=== PATIENT | female | born 1940 | race Caucasian/White ===

== ENCOUNTER 2019-07-19 14:29 | Emergency (ER) | payer MEDICARE, OTHER ==
[~2019-07-19] VITALS: Ht 154.9 cm; Wt 61.2 kg
[~2019-07-19 14:29] MED LIST: JANUVIA100 MG PO; LEVOTHYROXINE PO; METFORMIN HCL850 MG PO; NITROFURANTOIN100 MG PO; PAXIL PO
--- OUTSIDE RECORDS SUMMARY | 2019-07-19 14:32 | XMS REPORT ---
Author Author [facility] Address Unknown Phone Unavailable Care Team Providers Care Reed Press Feeder Name Role Phone Unavailable Unavailable Payers Payer Name Policy Type Policy Number Effective Date Expiration Date Problems This patient has no known problems. Allergies, Adverse Reactions, Alerts This patient has no known allergies or adverse reactions. Medications This patient has no known medications.
[2019-07-19] MEDS ORDERED: KETOROLAC TROMETHAMINE 30 MG/ML VIAL IV STA (14:51)
[2019-07-19] MEDS ORDERED: SODIUM CHLORIDE 0.9% 500ML 500 ML IV ONE (15:00)
[2019-07-19] MEDS ORDERED: DIAZEPAM 5 MG TAB PO ONE (15:00)
--- NOTE | 2019-07-19 15:49 | Diagnostic Imaging Report ---
History: Cough Comparison: No comparison chest imaging Findings: The lungs are clear aside from areas of linear likely scar lateral to the extending laterally from the left heart border and in the periphery of the lower right lung overlying the right anterior fifth rib. No pleural effusions or pneumothorax. The heart shadow is normal in size. The thoracic aorta is mildly tortuous and calcified. Degenerative changes are present in the spine. Impression: No evidence of acute cardiopulmonary disease. Signed by: Abimael Waller MD on 07/19/2019 3:46 PM
--- NOTE | 2019-07-19 15:57 | Diagnostic Imaging Report ---
History: Right head and neck pain Comparison studies:CT head 08/28/2014 Technique: Axial images were obtained from the brain and cervical spine. Coronal and sagittal images reconstructed from the axial data. Intravenous contrast: None Dose modulation, iterative reconstruction, and/or weight based adjustment of the mA/kV was utilized to reduce the radiation dose to as low as reasonably achievable. Findings: Head CT: Scalp/skull: No abnormalities. No fractures, blastic or lytic lesions. Brain sulci: Mildly prominent. Ventricles: Age-appropriate. No hydrocephalus. Parenchyma: Few small hypodensities in the supratentorial white matter are small vessel ischemic changes. No masses, hemorrhage, acute or chronic cortical vascular insults. Sellar/suprasellar region: No abnormalities. Craniocervical junction: Patent foramen magnum. No Chiari one malformation. Incidental findings: Atherosclerotic calcifications of the carotid siphons and vertebral arteries. Cervical spine CT: Fractures: None. Soft tissues: No gross abnormalities. Atlantoaxial articulation: Degenerative changes without acute abnormality. Alignment: Minimal grade 1 anterolisthesis of C3 over C4 (2 mm). No scoliosis. Cervicomedullary junction: No abnormalities. Patent foramen magnum. Vertebrae: No infection or neoplasm. Degenerative changes: At C3-4, mild disc degeneration with decreased intervertebral space. Bilateral facet hypertrophy and left uncinate process hypertrophy results in mild right and moderate left foraminal narrowing without significant canal stenosis. At C4-5, disc degeneration with obliterated intervertebral space. Diffuse disc osteophyte complex, bilateral uncinate process hypertrophy and facet hypertrophy results in moderate canal stenosis and severe bilateral foraminal narrowing. At C5-6, disc degeneration with obliterated intervertebral space and endplate sclerosis. Diffuse disc osteophyte complex and bilateral uncinate process hypertrophy results in moderate canal stenosis and moderate bilateral foraminal narrowing. At C6-7, disc degeneration with decreased intervertebral space. Bilateral uncinate process hypertrophy results in mild bilateral foraminal narrowing without significant canal stenosis. . Incidental findings: Atherosclerotic calcifications of the carotid bulbs. . Impression: Head CT: 1. No acute abnormality. Cervical spine CT: 1. No acute abnormalities. Degenerative changes as described above. 2. Cannot exclude ligament, spinal cord and or vascular abnormalities on the basis of this examination. Signed by: DR Alvin Mobley M.D. on 07/19/2019 3:54 PM
[2019-07-19 17:00] LABS: BASOPHILS % 0.3 % (0.0-1.0); EOSINOPHILS # (AUTO) 0.1 (0.0-0.4); EOSINOPHILS % 0.6 % (0.0-6.0); HEMATOCRIT 37.3 % (34.2-44.1); HEMOGLOBIN 12.2 g/dL (12.0-16.0); LYMPHOCYTES # (AUTO) 1.2 (1.0-3.2); LYMPHOCYTES % 10.2 % (18.0-39.1); MEAN CORPUSCULAR HEMOGLOBIN 28.2 pg (28-32); MEAN CORPUSCULAR HGB CONC 32.7 g/dL (31-35); MEAN CORPUSCULAR VOLUME 86.3 fL (81-99); MONOCYTES % 8.5 % (4.4-11.3); NEUTROPHILS # (AUTO) 9.4 (2.1-6.9); NEUTROPHILS % 79.9 % (38.7-80.0); PLATELET COUNT 443 x10e3/uL (140-360); RED BLOOD COUNT 4.32 x10e6/uL (3.6-5.1); RED CELL DISTRIBUTION WIDTH 13.3 % (11.7-14.4)
[2019-07-19 17:07] LABS: INR 0.96; PROTHROMBIN TIME 13.3 seconds (11.9-14.5)
[2019-07-19 17:08] LABS: PARTIAL THROMBOPLASTIN TIME 27.7 seconds (23.8-35.5)
[2019-07-19 17:17] LABS: ALANINE AMINOTRANSFERASE 11 IU/L (0-55); ALBUMIN 3.5 g/dL (3.5-5.0); ALBUMIN/GLOBULIN RATIO 0.8 (0.8-2.0); ALKALINE PHOSPHATASE 57 IU/L (40-150); ANION GAP 16.7 mmol/L (8-16); BLOOD UREA NITROGEN 15 mg/dL (7-26); BUN/CREATININE RATIO 22 (6-25); CALCIUM 10.1 mg/dL (8.4-10.2); CARBON DIOXIDE 24 mmol/L (22-29); CHLORIDE 102 mmol/L (98-107); CREATININE, SERUM 0.69 mg/dL (0.57-1.11); EST GLOMERULAR FILTRATION RATE > 60 ML/MIN (60-); GLUCOSE 93 mg/dL (74-118); POTASSIUM 3.7 mmol/L (3.5-5.1); SODIUM 139 mmol/L (136-145)
== END 2019-07-19 18:29 | disposition home or self-care (01) ==
LOC: ER 14:29
DX: M43.6 Torticollis (principal); R05 Cough; E11.9 Type 2 diabetes mellitus without complications; E03.9 Hypothyroidism, unspecified; Z86.73 Personal history of transient ischemic attack (TIA), and cerebral infarction without residual deficits
CPT/HCPCS: 36415; 70450; 71046; 72125; 80053; 85025; 85610; 85730; 99284; J1885; J7040

== ENCOUNTER → 2019-09-22 | Day surgery (SDC) | payer MEDICARE, OTHER ==
[2019-09-17 11:38] LABS: BASOPHILS % 0.7 % (0.0-1.0); EOSINOPHILS # (AUTO) 0.2 (0.0-0.4); EOSINOPHILS % 2.7 % (0.0-6.0); HEMATOCRIT 25.8 % (34.2-44.1); HEMOGLOBIN 7.9 g/dL (12.0-16.0); LYMPHOCYTES # (AUTO) 1.3 (1.0-3.2); LYMPHOCYTES % 21.5 % (18.0-39.1); MEAN CORPUSCULAR HEMOGLOBIN 28.5 pg (28-32); MEAN CORPUSCULAR HGB CONC 30.6 g/dL (31-35); MEAN CORPUSCULAR VOLUME 93.1 fL (81-99); MONOCYTES # (AUTO) 0.7 (0.2-0.8); MONOCYTES % 11.2 % (4.4-11.3); NEUTROPHILS # (AUTO) 3.7 (2.1-6.9); NEUTROPHILS % 63.7 % (38.7-80.0); PLATELET COUNT 256 x10e3/uL (140-360); RED BLOOD COUNT 2.77 x10e6/uL (3.6-5.1); RED CELL DISTRIBUTION WIDTH 15.5 % (11.7-14.4)
[2019-09-17 11:53] LABS: INR 0.89; PROTHROMBIN TIME 12.6 seconds (11.9-14.5)
[2019-09-17 12:05] LABS: ALANINE AMINOTRANSFERASE 14 IU/L (0-55); ALBUMIN 3.4 g/dL (3.5-5.0); ALKALINE PHOSPHATASE 60 IU/L (40-150); ANION GAP 11.7 mmol/L (8-16); BLOOD UREA NITROGEN 11 mg/dL (7-26); BUN/CREATININE RATIO 17 (6-25); CALCIUM 9.7 mg/dL (8.4-10.2); CARBON DIOXIDE 28 mmol/L (22-29); CHLORIDE 106 mmol/L (98-107); CREATININE, SERUM 0.63 mg/dL (0.57-1.11); EST GLOMERULAR FILTRATION RATE > 60 ML/MIN (60-); GLUCOSE 91 mg/dL (74-118); POTASSIUM 4.7 mmol/L (3.5-5.1); SODIUM 141 mmol/L (136-145)
[2019-09-22] VITALS (9 sets, daily range): BP systolic 112–140; BP diastolic 64–77
[~2019-09-22] VITALS: Ht 154.9 cm; Wt 61.2 kg
[~2019-09-22] MED LIST changes: +ASPIRIN 325 MG TAB ONE; +ASPIRIN325 MG PO; +CLOPIDOGREL BISULFATE 75 MG TAB ONE; +CRANBERRY-PROB1 EACH PO; +CRESTOR10 MG PO; +DOXYCYCLINE HY100 MG PO; +FENTANYL CITRATE/PF 100MCG/2 ML INJ ONE; +HEPARIN SOD (PORCINE) 1000 UNIT/ML 30ML ONE; +HEPARIN SOD/SOD CHLORIDE 2,000 ML ONE; +IOPAMIDOL 300MG/ML 100 ML INFUS..BTL IV ONE; +IOPAMIDOL 370 MG/ML 200 ML INFUS..BTL INJ ONE; +LIDOCAINE HCL 2% LOCAL 20 ML VIAL ONE; +MIDAZOLAM HCL 2 MG/2 ML VIAL ONE; +NITROGLYCERIN/D5W 200 MCG/ML 250 ML ONE; +SODIUM CHLORIDE 0.9% 1000ML 1,000 ML ONE; +SYNTHROID125 MCG PO; +VITAMIN C1000 MG PO; +XYZAL5 MG PO
--- NOTE | 2019-09-22 11:20 | NUR ---
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 Bedside report received from Elieser ARMENDARIZ. Identifierx2. Alert oriented and appropriate, PERRLA, respirations even and unlabored to room air. Pulses x2 upper ext, equal and strong. Pedal pulses PT/DP left PT/DP 2t and marked. Cap fill brisk < 3 sec. Rt Mynx site dry and intact. BKA No gross issues pain pallor pressure or dysrhythmia. Waffle mattress in place for comfort Pt know hx decubutu to sacral area. Skin warm and dry integrity appears IV 20g to left presents healthy at 75cchr w/o s/s of infiltration or complaint. Abdomen soft and supple. pt offered toileting, denies need to urinate or defecate. No personal affects with patient. Family son at bedside. Pt and family verbalizes understanding of POC. Currently w/o complaint of pain or need. ds/rn
--- NOTE | 2019-09-22 13:00 | NUR ---
1300 reposition for comfort No gross issues pain,pallor,pressure or dysrhythmia ds/rn
--- NOTE | 2019-09-22 15:30 | NUR ---
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 Rt Groin Mynx assessed for s/s of complication and presence of hematoma. Skin warm, dry, no discolor, and pulses present. IV removed from left thumb(#22) and left hand(#20). Distal tips appears intact. VS WNL. Pt denies pain, sob, or need at this time. Family at BS (son). Review of discharge paperwork and follow up instructions. verbalized understanding. Pt to wheelchair and transported to front of hospital. Transferred to private vehicle under own strength w/o incident with DC paperwork in hand. - kaylan/rn
--- NOTE | 2019-09-23 00:29 | Operative Report ---
DATE OF PROCEDURE: 09/22/2019 SURGEON: Zain Stearns DO PROCEDURES PERFORMED: 1. Conscious sedation, 2 hours. 2. Selective coronary angiography x2. 3. Catheter placement in the aorta. 4. Abdominal aortography. 5. Third order peripheral angiography of the left lower extremity. 6. Bilateral extremity angiography. 7. Percutaneous transluminal angioplasty, atherectomy, and stent placement to the left superficial femoral artery. PRE-PROCEDURE DIAGNOSIS: Peripheral arterial disease with claudication and chest pain with known risk factors for coronary artery disease. POSTPROCEDURE DIAGNOSIS: Peripheral arterial disease with claudication and chest pain with known risk factors for coronary artery disease. ESTIMATED BLOOD LOSS: Less than 50 mL. SPECIMENS REMOVED: None. PROCEDURE IN DETAIL: After informed consent was obtained, the patient was brought to the cardiac catheterization laboratory in the fasting and nonsedated state. Bilateral groins were prepped and draped in the usual sterile fashion. A 2% lidocaine was infiltrated over the right anterior groin for local anesthesia. The patient received fentanyl and midazolam administered by the clinical lab specialist nurse and her physiologic and neurologic status was monitored by myself and the clinical lab specialist staff for 2 hours. Using micropuncture needle, the right common femoral was accessed via modified Seldinger technique and a 6-Sammarinese sheath was placed. Abdominal aortography was performed using Omni Flush catheter. This was taken up and over the iliac bifurcation and left lower extremity angiography was performed. I crossed a Williamson Advantage wire to the popliteal artery and crossed a 0.035 seeker down to the popliteal artery. Third order peripheral angiography of the left lower extremity was performed. The wire was then placed through the microcatheter and the catheter was exchanged out for a 45 cm up and over sheath. Diagnostic imaging revealed a long diffuse severe 70% to 90% stenosis of the superficial femoral artery. The patient received systemic heparin. I placed a filter wire. Then performed a directional atherectomy of the proximal stenotic lesion. This was taken out. I then performed multiple balloon angioplasties with a 2.5 and 3.5 mm balloons. I performed balloon angioplasty with a 5 x 200 IN.PACT Admiral drug-coated balloon. This revealed excellent angioplasty results. However, revealed a small dissection in the midportion of the SFA. I deployed a 7 mm x 80 LifeStent. This was then post dilated with a 7 mm balloon. Final angiography confirmed excellent angioplasty and stent apposition with brisk antegrade flow distally. The sheath was then pulled back and angiographic images was performed over the right lower extremity. I exchanged out for a short 6-Sammarinese sheath. I performed coronary angiography x2. The arteriotomy site was closed with a Mynx device with excellent hemostasis. The patient tolerated the procedure well with no immediate complications and transferred back to room in stable condition. FINDINGS: 1. The infrarenal abdominal aorta and iliac arteries bilaterally are patent without significant disease. 2. The left superficial femoral artery has severe proximal stenosis of approximately 70% in severity. Following that, there are two tandem 90% lesions. The popliteal artery is patent. The anterior tibial artery is patent throughout its course. The tibioperoneal trunk is occluded at the ostium and the posterior tibial and peroneal arteries are occluded throughout their course. The plantar arch fills via the dorsalis pedis. 3. The right superficial femoral artery has a 70% stenosis. CORONARY ANGIOGRAPHY: 1. The left main coronary artery has a 10% stenosis. 2. The left anterior descending coronary is very tortuous and has a proximal 50% to 60% stenosis. The midportion has a discrete 70% stenosis. 3. The left circumflex coronary artery is highly tortuous with diffuse luminal irregularities and provides two obtuse marginal vessels. 4. The right coronary artery is a dominant vessel. There is a proximal 70% to 80% ulcerated plaque. This provides a small PDA with ostial moderate disease. The posterolateral branch is medium in caliber and has a chronic total occlusion in the midportion and the distal vessel feels bridging collaterals. IMPRESSION: 1. Peripheral artery disease. 2. Coronary artery disease. RECOMMENDATIONS: She is now status post successful revascularization of the left superficial femoral artery. Continue dual antiplatelet therapy. The patient will need to be brought back for coronary intervention. Zain Stearns DO BM/MODL /[id number]
== END | disposition home or self-care (01) ==
LOC: CATH LAB 07:30
PROVIDERS: ATTEND Internal Medicine Cardiovascular Disease
DX: I70.213 Atherosclerosis of native arteries of extremities with intermittent claudication, bilateral legs (principal); I25.10 Atherosclerotic heart disease of native coronary artery without angina pectoris; E11.9 Type 2 diabetes mellitus without complications; E07.9 Disorder of thyroid, unspecified; Z88.6 Allergy status to analgesic agent; Z88.0 Allergy status to penicillin; Z01.812 Encounter for preprocedural laboratory examination; Z11.59 Encounter for screening for other viral diseases; Z79.84 Long term (current) use of oral hypoglycemic drugs; Z79.82 Long term (current) use of aspirin; Z86.73 Personal history of transient ischemic attack (TIA), and cerebral infarction without residual deficits; Z82.49 Family history of ischemic heart disease and other diseases of the circulatory system; Z82.3 Family history of stroke; Z83.3 Family history of diabetes mellitus
CPT/HCPCS: 36415; 37227; 75625; 80053; 85025; 85610; 87635; C1714; C1725 ×4; C1760; C1769 ×2; C1876; C1887; J1644; J2001; J2250; J3010; J7030; Q9967 ×2; 36247; 37224; 37225; 75630; 93454; 99152; 99153

== ENCOUNTER → 2019-11-15 | Day surgery (SDC) | payer MEDICARE, OTHER ==
[2019-11-10 12:14] LABS: BASOPHILS % 0.8 % (0.0-1.0); EOSINOPHILS % 0.8 % (0.0-6.0); HEMOGLOBIN 9.4 g/dL (12.0-16.0); LYMPHOCYTES # (AUTO) 1.1 (1.0-3.2); LYMPHOCYTES % 22.4 % (18.0-39.1); MEAN CORPUSCULAR HEMOGLOBIN 26.3 pg (28-32); MEAN CORPUSCULAR HGB CONC 30.3 g/dL (31-35); MEAN CORPUSCULAR VOLUME 86.8 fL (81-99); MONOCYTES # (AUTO) 0.5 (0.2-0.8); MONOCYTES % 9.8 % (4.4-11.3); NEUTROPHILS # (AUTO) 3.3 (2.1-6.9); NEUTROPHILS % 65.8 % (38.7-80.0); PLATELET COUNT 257 x10e3/uL (140-360); RED BLOOD COUNT 3.57 x10e6/uL (3.6-5.1); RED CELL DISTRIBUTION WIDTH 18.9 % (11.7-14.4)
[~2019-11-15] MED LIST changes: -ASPIRIN 325 MG TAB ONE; -CLOPIDOGREL BISULFATE 75 MG TAB ONE; +CRANBERRY400 MG PO; -HEPARIN SOD (PORCINE) 1000 UNIT/ML 30ML ONE; -HEPARIN SOD/SOD CHLORIDE 2,000 ML ONE; -IOPAMIDOL 300MG/ML 100 ML INFUS..BTL IV ONE; -IOPAMIDOL 370 MG/ML 200 ML INFUS..BTL INJ ONE; -LIDOCAINE HCL 2% LOCAL 20 ML VIAL ONE; +LIDOCAINE HCL 2% LOCAL INJ 5 ML SDV VIAL INJ ONE; -NITROGLYCERIN/D5W 200 MCG/ML 250 ML ONE; +PLAVIX75 MG PO; +PROBIOTIC & AC1 EACH PO; +PROPOFOL IV EMULSION 10 MG/ML 20 ML VIAL ONE; -SODIUM CHLORIDE 0.9% 1000ML 1,000 ML ONE; +VIT B12 PO
[2019-11-15 15:35] VITALS: BP 103/63
--- NOTE | 2019-11-15 15:59 | Operative Report ---
DATE OF PROCEDURE: 11/15/2019 SURGEON: Max Coates MD PROCEDURE: An EGD with biopsies. ADDITIONAL REFERRING PHYSICIAN: Dr. Zain Stearns DO INDICATIONS FOR EGD: Iron deficiency anemia. MEDICATIONS: The patient was done under MAC. Please see anesthesiologist's note. PROCEDURE IN DETAIL: With the patient in left lateral decubitus position, flexible fiberoptic Olympus gastroscope was introduced into the esophagus under direct visualization without any difficulty. There was some patchy erythema noted in distal esophagus. The scope was then advanced with ease into the stomach traversing a small hiatal hernia. Mucosa overlying the antrum and the body revealed some patchy erythema and [id number] edema, and biopsies were obtained and sent to stain for H pylori. An approximately 4 mm ulcer, antrum with heaped up margins without active bleeding was biopsied. Pylorus was of normal contour and shape, was intubated with ease and the scope was advanced all the way to the second portion of the duodenum. Biopsies were obtained from the proximal second portion as well as the duodenal bulb. The scope was then withdrawn back into the stomach and retroflexed mucosa overlying the fundus and cardia appeared to be within normal limits. The scope was then straightened out, it was subsequently withdrawn. The patient tolerated the procedure well. IMPRESSION: 1. Distal esophagitis, mild. 2. Small sliding hiatal hernia. 3. Gastritis, biopsied, biopsies sent to stain for H pylori. 4. Gastric ulcer, antrum, approximately 4 mm in size with heaped up margins, biopsied. 5. Rule out sprue. PLAN: Followup histology. Initiate Protonix 40 mg one p.o. q.a.m. a.c. Carafate 1 g p.o. a.c. t.i.d. and at bedtime. Max Coates MD [facility] [place]/MODL /[id number] cc: DO Marcus Zarate DO
== END | disposition home or self-care (01) ==
LOC: OR 12:17
PROVIDERS: ATTEND Internal Medicine Gastroenterology
DX: D64.89 Other specified anemias (principal); K20.9 Esophagitis, unspecified; K29.70 Gastritis, unspecified, without bleeding; K44.9 Diaphragmatic hernia without obstruction or gangrene; K25.9 Gastric ulcer, unspecified as acute or chronic, without hemorrhage or perforation; K31.9 Disease of stomach and duodenum, unspecified; Z11.59 Encounter for screening for other viral diseases; Z01.810 Encounter for preprocedural cardiovascular examination; Z01.812 Encounter for preprocedural laboratory examination; E11.9 Type 2 diabetes mellitus without complications; E78.00 Pure hypercholesterolemia, unspecified; E03.9 Hypothyroidism, unspecified; Z86.73 Personal history of transient ischemic attack (TIA), and cerebral infarction without residual deficits; H54.7 Unspecified visual loss; Z79.84 Long term (current) use of oral hypoglycemic drugs
CPT/HCPCS: 36415 ×2; 43239; 82948; 85025; 88305; 88312; 93005; J2001; J2704; U0002; J2250; J3010

== ENCOUNTER → 2019-11-18 | Outpatient (CLI) | payer MEDICARE, OTHER ==
[~2019-11-18] MED LIST changes: -FENTANYL CITRATE/PF 100MCG/2 ML INJ ONE; +HEPARIN SOD (PORCINE) 1000 UNIT/ML SDV ONE; -LIDOCAINE HCL 2% LOCAL INJ 5 ML SDV VIAL INJ ONE; -MIDAZOLAM HCL 2 MG/2 ML VIAL ONE; -PROPOFOL IV EMULSION 10 MG/ML 20 ML VIAL ONE
--- NOTE | 2019-11-18 19:23 | Diagnostic Imaging Report ---
Tagged-RBC GI Bleed Study Clinical information: 79-year-old female with anemia. Discussion: The patient's own red blood cells were labeled with 27 mCi of technetium-99m pertechnetate using the in vitro method (UltraTag). Dynamic images of the abdomen were obtained through 60 minutes. Distribution of tracer activity appears physiologic throughout the abdomen except for collateral venous patterns in the lower abdomen. No abnormal accumulation of tracer is seen within the gastrointestinal lumen. Impression: No scan evidence of active gastrointestinal bleeding at this time. Signed by: Dr. Jillian iPtts M.D. on 11/18/2019 7:19 PM
== END ==
LOC: NM 08:16
PROVIDERS: ATTEND Internal Medicine Gastroenterology
DX: D64.89 Other specified anemias (principal)
CPT/HCPCS: 78278; A9512 ×2; J1644

== ENCOUNTER 2020-02-07 09:01 | Observation (INO) | payer MEDICARE, OTHER ==
[~2020-02-07] VITALS: Ht 154.9 cm; Wt 60.8 kg
[~2020-02-07 09:01] MED LIST changes: -HEPARIN SOD (PORCINE) 1000 UNIT/ML SDV ONE
[2020-02-07 09:27] LABS: BASOPHILS % 0.7 % (0.0-1.0); EOSINOPHILS # (AUTO) 0.1 (0.0-0.4); HEMATOCRIT 36.5 % (34.2-44.1); HEMOGLOBIN 11.7 g/dL (12.0-16.0); LYMPHOCYTES % 22.3 % (18.0-39.1); MEAN CORPUSCULAR HEMOGLOBIN 29.5 pg (28-32); MEAN CORPUSCULAR HGB CONC 32.1 g/dL (31-35); MEAN CORPUSCULAR VOLUME 91.9 fL (81-99); MONOCYTES # (AUTO) 0.5 (0.2-0.8); NEUTROPHILS # (AUTO) 2.8 (2.1-6.9); PLATELET COUNT 204 x10e3/uL (140-360); RED BLOOD COUNT 3.97 x10e6/uL (3.6-5.1); RED CELL DISTRIBUTION WIDTH 14.6 % (11.7-14.4)
[2020-02-07 09:43] LABS: ALANINE AMINOTRANSFERASE 11 IU/L (0-55); ALBUMIN 3.9 g/dL (3.5-5.0); ALBUMIN/GLOBULIN RATIO 1.1 (0.8-2.0); ALKALINE PHOSPHATASE 46 IU/L (40-150); ANION GAP 16.4 mmol/L (8-16); BLOOD UREA NITROGEN 16 mg/dL (7-26); BUN/CREATININE RATIO 23 (6-25); CALCIUM 10.1 mg/dL (8.4-10.2); CARBON DIOXIDE 26 mmol/L (22-29); CHLORIDE 105 mmol/L (98-107); CREATINE KINASE 27 IU/L (29-168); CREATININE, SERUM 0.69 mg/dL (0.57-1.11); EST GLOMERULAR FILTRATION RATE > 60 ML/MIN (60-); GLUCOSE 86 mg/dL (74-118); POTASSIUM 4.4 mmol/L (3.5-5.1); SODIUM 143 mmol/L (136-145)
[2020-02-07] MEDS ORDERED: ASPIRIN 81 MG CHEW TAB PO ONE (10:30)
[2020-02-07 11:00] LABS: CLARITY,URINE CLEAR (CLEAR); COLOR,URINE YELLOW (YELLOW); LEUKOCYTE ESTERASE ,URINE LARGE (NEGATIVE); NITRITE,URINE NEGATIVE (NEGATIVE); PROTEIN,URINE DIPSTICK 1+ (NEGATIVE)
[2020-02-07 11:01] LABS: BILIRUBIN,URINE NEGATIVE (NEGATIVE); KETONES,URINE NEGATIVE (NEGATIVE); URINE UROBILINOGEN 0.2 mg/dL (0.2 - 1)
[2020-02-07 11:15] LABS: BACTERIA,URINE RARE /HPF; WBC,URINE (MAN) >50 /HPF (0-5)
[2020-02-07 11:16] LABS: EPITHELIAL CELLS,URINE FEW /LPF
[2020-02-07] MEDS ORDERED: METHENAMINE HIPP1 GM PO (12:32)
[2020-02-07 15:15] VITALS: BP 141/56
[2020-02-07 15:36] VITALS: BP 141/56
[2020-02-07 16:30] VITALS: BP 155/59
[2020-02-07] MEDS: INSULIN LISPRO 100 UNIT/1 ML 3ML VIAL SQ SCH ×2 (16:30→21:00)
[2020-02-07] MEDS ORDERED: DEXTROSE 50% SYRINGE 50 ML IV PRN (16:30)
[2020-02-07 20:00] VITALS: BP 138/62
[2020-02-07 21:00] VITALS: BP 138/62
[2020-02-07] MEDS ORDERED: SIMVASTATIN 40 MG TAB PO SCH (21:00)
[2020-02-07] MEDS: SIMVASTATIN 20 MG TAB PO SCH (21:18)
[2020-02-07 23:47] LABS: CREATINE KINASE MB 1.6 ng/mL (0-5.0)
[2020-02-08] VITALS (9 sets, daily range): BP systolic 114–148; BP diastolic 60–80
[2020-02-08] MEDS: LEVOTHYROXINE SODIUM 75 MCG TAB PO SCH (05:56)
[2020-02-08 06:22] LABS: BASOPHILS % 0.7 % (0.0-1.0); EOSINOPHILS # (AUTO) 0.1 (0.0-0.4); EOSINOPHILS % 3.2 % (0.0-6.0); HEMATOCRIT 33.2 % (34.2-44.1); HEMOGLOBIN 10.8 g/dL (12.0-16.0); LYMPHOCYTES # (AUTO) 1.1 (1.0-3.2); LYMPHOCYTES % 25.6 % (18.0-39.1); MEAN CORPUSCULAR HEMOGLOBIN 29.9 pg (28-32); MEAN CORPUSCULAR HGB CONC 32.5 g/dL (31-35); MONOCYTES # (AUTO) 0.6 (0.2-0.8); MONOCYTES % 13.3 % (4.4-11.3); NEUTROPHILS # (AUTO) 2.5 (2.1-6.9); PLATELET COUNT 197 x10e3/uL (140-360); RED BLOOD COUNT 3.61 x10e6/uL (3.6-5.1); RED CELL DISTRIBUTION WIDTH 14.4 % (11.7-14.4)
[2020-02-08 07:03] LABS: CREATINE KINASE MB 1.5 ng/mL (0-5.0)
[2020-02-08 07:06] LABS: BLOOD UREA NITROGEN 13 mg/dL (7-26); BUN/CREATININE RATIO 22 (6-25); CALCIUM 9.7 mg/dL (8.4-10.2); CARBON DIOXIDE 27 mmol/L (22-29); CHLORIDE 106 mmol/L (98-107); CHOL/HDL RATIO 2.4 (3.0-3.6); CHOLESTEROL 119 MD/DL (0-199); CREATININE, SERUM 0.58 mg/dL (0.57-1.11); EST GLOMERULAR FILTRATION RATE > 60 ML/MIN (60-); GLUCOSE 81 mg/dL (74-118); HDL CHOLESTEROL 49 MG/DL (40-60); LDL CHOLESTEROL 51 MG/DL (60-130); SODIUM 142 mmol/L (136-145); TRIGLYCERIDES 93 MG/DL (0-149)
[2020-02-08] MEDS: INSULIN LISPRO 100 UNIT/1 ML 3ML VIAL SQ SCH ×4 (07:11→21:00)
[2020-02-08] MEDS: POLYETHYLENE GLYCOL 3350 17 GM PACK PO SCH (08:37)
[2020-02-08] MEDS: CLOPIDOGREL BISULFATE 75 MG TAB PO SCH (08:52)
[2020-02-08] MEDS ORDERED: LEVOTHYROXINE SODIUM 125 MCG TAB PO SCH (09:00)
[2020-02-08] MEDS ORDERED: FOSFOMYCIN TROMETHAMINE 3 GM PACKET PO ONE (10:30)
[2020-02-08] MEDS ORDERED: ACETAMINOPHEN 325 MG TAB PO PRN (14:15)
[2020-02-08] MEDS: SIMVASTATIN 20 MG TAB PO SCH (21:52)
[2020-02-09 04:00] VITALS: BP 126/61
[2020-02-09 05:10] LABS: BASOPHILS % 0.9 % (0.0-1.0); EOSINOPHILS # (AUTO) 0.1 (0.0-0.4); EOSINOPHILS % 2.3 % (0.0-6.0); HEMATOCRIT 34.5 % (34.2-44.1); HEMOGLOBIN 11.5 g/dL (12.0-16.0); MEAN CORPUSCULAR HEMOGLOBIN 30.4 pg (28-32); MEAN CORPUSCULAR HGB CONC 33.3 g/dL (31-35); MEAN CORPUSCULAR VOLUME 91.3 fL (81-99); MONOCYTES # (AUTO) 0.7 (0.2-0.8); MONOCYTES % 15.5 % (4.4-11.3); NEUTROPHILS # (AUTO) 2.6 (2.1-6.9); NEUTROPHILS % 58.1 % (38.7-80.0); PLATELET COUNT 200 x10e3/uL (140-360); RED BLOOD COUNT 3.78 x10e6/uL (3.6-5.1); RED CELL DISTRIBUTION WIDTH 14.3 % (11.7-14.4)
[2020-02-09] MEDS: LEVOTHYROXINE SODIUM 75 MCG TAB PO SCH (05:15)
[2020-02-09 05:31] LABS: ANION GAP 11.9 mmol/L (8-16); BLOOD UREA NITROGEN 10 mg/dL (7-26); BUN/CREATININE RATIO 17 (6-25); CALCIUM 9.8 mg/dL (8.4-10.2); CARBON DIOXIDE 28 mmol/L (22-29); CHLORIDE 106 mmol/L (98-107); CREATININE, SERUM 0.58 mg/dL (0.57-1.11); EST GLOMERULAR FILTRATION RATE > 60 ML/MIN (60-); GLUCOSE 101 mg/dL (74-118); POTASSIUM 3.9 mmol/L (3.5-5.1); SODIUM 142 mmol/L (136-145)
[2020-02-09] MEDS: INSULIN LISPRO 100 UNIT/1 ML 3ML VIAL SQ SCH ×3 (07:30→16:12)
[2020-02-09 08:06] VITALS: BP 146/56
[2020-02-09] MEDS: POLYETHYLENE GLYCOL 3350 17 GM PACK PO SCH (08:32)
[2020-02-09 09:00] VITALS: BP 146/56
[2020-02-09] MEDS ORDERED: BALSAM PERU/CASTOR OIL 60 GM OINT...G. TP SCH (09:00)
[2020-02-09] MEDS: CLOPIDOGREL BISULFATE 75 MG TAB PO SCH (09:00)
[2020-02-09] MEDS ORDERED: VERAPAMIL HCL 2.5 MG/ML 2 ML VIAL ONE (09:57)
[2020-02-09] MEDS ORDERED: LIDOCAINE HCL 2% LOCAL 20 ML VIAL ONE (09:57)
[2020-02-09] MEDS ORDERED: FENTANYL CITRATE/PF 100MCG/2 ML INJ ONE (09:57)
[2020-02-09] MEDS ORDERED: MIDAZOLAM HCL 2 MG/2 ML VIAL ONE (09:57)
[2020-02-09] MEDS ORDERED: HEPARIN SOD/SOD CHLORIDE 2,000 ML ONE (09:58)
[2020-02-09] MEDS ORDERED: SODIUM CHLORIDE 0.9% 1000ML 1,000 ML ONE (09:58)
[2020-02-09] MEDS ORDERED: IOPAMIDOL 370 MG/ML 200 ML INFUS..BTL INJ ONE (09:58)
[2020-02-09] MEDS ORDERED: TRAMADOL HCL 50 MG TAB PO ONE (15:10)
[2020-02-09 16:08] VITALS: BP 133/65
== END 2020-02-09 18:03 | disposition home or self-care (01) ==
LOC: ER 09:30 → INTOOBSV 10:30 → ERHOLD 10:30 → MED/SURG 14:48
PROVIDERS: ADMIT Internal Medicine; ATTEND Internal Medicine
DX: I25.10 Atherosclerotic heart disease of native coronary artery without angina pectoris (principal); R07.9 Chest pain, unspecified; E11.9 Type 2 diabetes mellitus without complications; Z79.84 Long term (current) use of oral hypoglycemic drugs; E03.9 Hypothyroidism, unspecified; H54.8 Legal blindness, as defined in USA; Z95.820 Peripheral vascular angioplasty status with implants and grafts; Z87.440 Personal history of urinary (tract) infections; M25.539 Pain in unspecified wrist; Z88.5 Allergy status to narcotic agent; Z88.0 Allergy status to penicillin; Z88.2 Allergy status to sulfonamides; Z86.12 Personal history of poliomyelitis; Z89.431 Acquired absence of right foot; Z82.49 Family history of ischemic heart disease and other diseases of the circulatory system; Z82.3 Family history of stroke; Z80.0 Family history of malignant neoplasm of digestive organs; E78.5 Hyperlipidemia, unspecified; I49.3 Ventricular premature depolarization; N39.0 Urinary tract infection, site not specified; B96.20 Unspecified Escherichia coli [E. coli] as the cause of diseases classified elsewhere; R53.2 Functional quadriplegia; E43 Unspecified severe protein-calorie malnutrition; Z20.828 Contact with and (suspected) exposure to other viral communicable diseases
CPT/HCPCS: 36415 ×3; 70450; 71045; 80048 ×2; 80053; 80061; 81001; 82550 ×2; 82553 ×2; 82948; 83036; 83880; 84439; 84443; 84484 ×2; 85025 ×3; 87086; 87186; 93005; 93454; 99251; 99285; C1769; C1887; G0378 ×3; J2001; J2250; J3010; J7030; Q9967; U0002; 99152; 99153